=== PATIENT | male | born 1955 | race Caucasian/White ===

== ENCOUNTER → 2020-08-20 | Outpatient (CLI) | payer MEDICARE ==
--- NOTE | 2020-08-20 16:12 | RAD ---
EXAM: CT CHEST WITHOUT CONTRAST (LDCT LUNG CANCER SCREENING). HISTORY: Risk factors for pulmonary malignancy. Baseline screening. Smoking history. TECHNIQUE: CT of the chest was performed without intravenous contrast using a low-dose lung screening protocol. Findings analysis is based on ACR Lung-RADS v1.1. *One or more of the following individual ized dose reduction techniques were utilized for this examination: 1. Automated exposure control. 2. Adjustment of the mA and/or kV according to patient size. 3. Use of iterative reconstruction technique. COMPARISON: None available. FINDINGS: Nodules: A 6 x 3 mm nodule adjacent to the right pleura on image 196 is contiguous with scarring and likely benign. There are no clearly suspicious nodules. Other findings: Images of the upper abdomen reveal no acute abnormality. Bone windows reveal no suspi cious lesions. A prevascular lymph node on the right measures 14 x 10 mm. A subcarinal node measures 2.2 x 1.2 cm. T here are scattered small low right paratracheal lymph nodes measuring up to 14 x 10 mm. There is a sm all right pleural effusion. There is diffuse nonfocal pleural thickening throughout the right base. T he heart is mildly enlarged. There are changes of coronary artery bypass grafting. Regions of consolidation laterally in the right middle lobe and posterior the right lower lobe are co ntiguous with the pleura and may reflect rounded atelectasis. IMPRESSION/RECOMMENDATION: 1. ACR Lung-RADS category: 2S. 2. Continue annual screening with LDCT in 12 months. 3. Small right pleural effusion with diffuse right pleural thickening. Correlate for chronic pleural inflammation. 4. Regions of consolidation in the right base suggests round atelectasis. Comparison with older studi es is suggested to assess chronicity. Correlate for evidence of infection to exclude pneumonia. 5. Prominent mediastinal lymph nodes are likely reactive in the setting. Attention on further follow- up. 6. Mild cardiomegaly. Electronically signed by: Navneet Richardson MD (08/20/2020 4:09 PM) [id number]
== END ==
LOC: CT 10:59
PROVIDERS: ATTEND Internal Medicine
DX: Z12.2 Encounter for screening for malignant neoplasm of respiratory organs (principal); I11.0 Hypertensive heart disease with heart failure; I50.22 Chronic systolic (congestive) heart failure; I12.9 Hypertensive chronic kidney disease with stage 1 through stage 4 chronic kidney disease, or unspecified chronic kidney disease; N18.9 Chronic kidney disease, unspecified; N17.1 Acute kidney failure with acute cortical necrosis; I25.5 Ischemic cardiomyopathy; I65.29 Occlusion and stenosis of unspecified carotid artery; J90 Pleural effusion, not elsewhere classified; Z95.1 Presence of aortocoronary bypass graft; Z99.2 Dependence on renal dialysis; Z87.891 Personal history of nicotine dependence
CPT/HCPCS: 71271

== ENCOUNTER 2021-03-28 22:55 | Emergency (ER) | payer MEDICARE ==
[~2021-03-28] VITALS: Ht 175.3 cm; Wt 86.0 kg
--- NOTE | 2021-03-28 23:10 | PHYS DOC ---
Adult General HPI HPI Patient is a 66-year-old male with a past medical history of type 2 diabetes on insulin and recent admission and discharge for pneumonia who presents with a chief complaint of weakness and shortness of breath. States over the last 3 days he has had profound fatigue at home and started having some shortness of breath earlier today. Denies headache, changes in vision, pain or trouble swallowing, chest pain, abdominal pain, nausea, vomiting, diarrhea. Denies any numbness/weakness/tingling. Review of Systems Review of Systems Review of systems otherwise unremarkable except noted in HPI Physical Exam Physical Exam Constitutional: Well developed, well nourished, in acute respiratory distress, hypoxia on room air and appears ill HENT: Normocephalic, atraumatic, bilateral external ears normal, oropharynx dry, no oral exudates, nose normal. [] Eyes: PERRLA, EOMI, conjunctiva normal, no discharge. [] Neck: Normal range of motion, no tenderness, supple, no stridor. [] Cardiovascular: Sinus tachycardia Lungs & Thorax: In respiratory distress, tachypnea, increased work of breathing, bilateral rhonchi, hypoxia Abdomen: soft, no tenderness, no masses, no pulsatile masses. [] Skin: Warm, dry, no erythema, no rash. [] Back: No tenderness, no CVA tenderness. [] Extremities: No tenderness, no cyanosis, no clubbing, ROM intact, no edema. [] Neurologic: Alert and oriented X 3, normal motor function, normal sensory function, no focal deficits noted. [] Psychologic: Affect normal, judgement normal, mood normal. [] EKG EKG [] Radiology/Procedures Radiology/Procedures [] Heart Score C/O Chest Pain: No Risk Factors: Risk Factors: DM, Current or recent (<one month) smoker, HTN, HLP, family history of CAD, obesity. Risk Scores: Risk Factors: DM, Current or recent (<one month) smoker, HTN, HLP, family history of CAD, obesity. Course & Med Decision Making Course & Med Decision Making Patient is a 66-year-old male who presents with shortness of breath Vital signs notable for tachycardia, tachypnea, hypoxia on room air. Physical exam noted above. Placed on monitor with 2 IV placed. Laboratory analysis notable for anemia, elevated creatinine and elevated troponin. Given aspirin. EKG with a rate of 85, QRS 92, QTc 467, no STEMI Chest x-ray with pneumonia and probable pleural effusion. Blood cultures obtained. Started on antibiotics. IV fluid resuscitation begun Discussed all findings with family and recommended admission for continued evaluation and treatment of his respiratory failure/hypoxia, elevated troponin and sepsis. Family grateful, verbalized understanding and agreed with plan of admission. Family asked to be admitted to . excepted patient to their service. Dragon Disclaimer Dragon Disclaimer This electronic medical record was generated, in whole or in part, using a voice recognition dictation system. Departure Departure: Impression: Primary Impression: Sepsis Additional Impressions: Respiratory failure Elevated troponin Dialysis patient Disposition: 02 [facility]ORT TERM [facility]OS[facility] Condition: STABLE Referrals: SUNITHA GONZÁLES MD (PCP) Problem Qualifiers KYLE PIERCE MD Mar 28, 2021 23:10
[2021-03-29 00:28] LABS: BASO % 1 % (0-3); EOS % 0 % (0-3); HEMATOCRIT 27.3 % (39.0-53.0); LYMPH # 1.2 x10^3/uL (1.0-4.8); LYMPH % 26 % (24-48); MEAN CORPUSCULAR HEMOGLOBIN 33 pg (25-35); MEAN CORPUSCULAR HGB CONC 33 g/dL (31-37); MEAN CORPUSCULAR VOLUME 98 fL (79-100); MONO # 0.4 x10^3/uL (0.0-1.1); MONO % 8 % (0-9); NEUT # 3.1 x10^3uL (1.8-7.7); NEUT % 65 % (31-73); PLATELET COUNT 158 x10^3/uL (140-400); RED BLOOD COUNT 2.78 x10^6/uL (4.30-5.70); RED CELL DISTRIBUTION WIDTH 18.1 % (11.5-14.5); WHITE BLOOD COUNT 4.7 x10^3/uL (4.0-11.0)
--- NOTE | 2021-03-29 00:30 | RAD ---
XR CHEST 1V History: Reason: SOB / Spl. Instructions: / History: Comparison: March 04, 2015 Findings: Moderate diffuse interstitial thickening with patchy opacities, right greater than left. Small right pleural effusion. Enlarged cardiac size. Prior mid sternotomy. No pneumothorax. Impression: 1. Moderate diffuse interstitial thickening with patchy opacities, may represent pulmonary edema. 2. Small right pleural effusion. Electronically signed by: Derrick Fuller DO (03/29/2021 12:28 AM) [facility]
[2021-03-29 00:53] LABS: BGAS PH 7.45 (7.35-7.46)
--- NOTE | 2021-03-29 01:04 | EKG ---
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
[2021-03-29 01:06] LABS: CALCIUM 7.9 mg/dL (8.5-10.1); CREATININE 7.6 mg/dL (0.7-1.3); GFR 7.2; POTASSIUM 3.9 mmol/L (3.5-5.1)
[2021-03-29 01:19] LABS: ALBUMIN 2.4 g/dL (3.4-5.0); ALBUMIN/GLOBULIN RATIO 0.6 (1.0-1.7); C REACTIVE PROTEIN 106.5 mg/L (0-3.3); MAGNESIUM 2.1 mg/dL (1.8-2.4); TOTAL BILIRUBIN 0.6 mg/dL (0.2-1.0); TOTAL PROTEIN 6.1 g/dL (6.4-8.2)
[2021-03-29] MEDS ORDERED: ASPIRIN CHEWABLE 81 MG TABLET. PO ONE (01:30)
[2021-03-29] MEDS ORDERED: IV RINGERS SOLUTION,LACTATED 1,000 ML IV ONE (01:30)
[2021-03-29] MEDS ORDERED: FUROSEMIDE 40 MG/4 ML VIAL IVP ONE (01:30)
[2021-03-29] MEDS ORDERED: NOREPINEPHRINE BITARTRATE 8 MG in IV DEXTROSE 5% 250 ML IV PRN (02:00)
[2021-03-29] MEDS ORDERED: SEVE800T9 PO (02:06)
[2021-03-29] MEDS ORDERED: AMLO1TAB91 PO (02:06)
[2021-03-29] MEDS ORDERED: ASPI-424 PO (02:06)
[2021-03-29] MEDS ORDERED: ATOR40TA59 PO (02:06)
[2021-03-29] MEDS ORDERED: FOLI0.8T33 PO (02:06)
[2021-03-29 02:45] LABS: BACTERIA,URINE 0 /HPF (0-FEW); BILIRUBIN,URINE NEG (NEG); CLARITY,URINE CLEAR; COLOR,URINE YELLOW; GLUCOSE,URINE NEG (NEG); NITRITE,URINE NEG (NEG); SQUAMOUS EPITHELIAL CELL,UR FEW /LPF; UROBILINOGEN,URINE 0.2 mg/dL (0.2 mg/dL)
[2021-03-29 02:55] LABS: INFLUENZA A PATIENT NEGATIVE (NEGATIVE); INFLUENZA B PATIENT NEGATIVE (NEGATIVE)
[2021-03-29 04:06] VITALS: BP 117/44
== END 2021-03-29 04:10 | disposition short-term general hospital (02) ==
LOC: ER 22:55
DX: U07.1 COVID-19 (principal); A41.9 Sepsis, unspecified organism; J96.90 Respiratory failure, unspecified, unspecified whether with hypoxia or hypercapnia; R77.8 Other specified abnormalities of plasma proteins; E11.9 Type 2 diabetes mellitus without complications; Z99.2 Dependence on renal dialysis
CPT/HCPCS: 36415; 51702; 71045; 80053; 81001; 82803; 83605; 83690; 83735; 83880; 84484; 85025; 85379; 85610; 85730; 86140; 87040; 87428; 93005; 96365; 96375; 99285; C9803; J1940; J1956; J7120; U0003; 94640; 99284; 94664